=== PATIENT | male | born 1980 | race African-American/Black ===

== ENCOUNTER 2018-09-11 11:36 | Emergency (ER) | payer MEDICAID ==
[~2018-09-11] VITALS: Ht 188 cm; Wt 114.3 kg
[2018-09-11 11:56] VITALS: Ht 188 cm; Wt 114.3 kg
[2018-09-11 13:58] LABS: BASOPHIL % 0.2 % (0-2); PLATELET COUNT 397 x10^3mcL (130-400); RED CELL DISTRIBUTION WIDTH 12.6 % (11.5-14.5)
[2018-09-11 14:10] LABS: CALCIUM 9.4 mg/dL (8.5-10.1); CARBON DIOXIDE 23.4 mmol/L (21-32); CHLORIDE SERUM 104 mmol/L (98-107); CREATININE SERUM 1.4 mg/dL (0.7-1.3); GFR1 > 60 mL/min; GLUCOSE SERUM 94 mg/dL (74-106); POTASSIUM SERUM 4.2 mmol/L (3.5-5.1); SODIUM SERUM 140 mmol/L (136-145)
[2018-09-11 14:15] LABS: ALBUMIN 4.1 g/dL (3.4-5.0); ALKALINE PHOSPHATASE 74 U/L (46-116); ALT/SGPT 33 U/L (16-63); AST/SGOT 13 U/L (15-37); BILIRUBIN TOTAL 0.6 mg/dL (0.20-1.00); LIPASE 71 IU/L (73-393)
[2018-09-11 14:18] LABS: TOTAL PROTEIN, SERUM 9.1 g/dL (6.4-8.2)
[2018-09-11 16:04] VITALS: BP 122/75
== END 2018-09-11 16:04 | disposition home or self-care (01) ==
LOC: ED 11:36
PROVIDERS: Emergency Medicine
DX: R10.13 Epigastric pain (principal); R11.2 Nausea with vomiting, unspecified; R19.7 Diarrhea, unspecified; Z88.1 Allergy status to other antibiotic agents
CPT/HCPCS: J1885; J2405